=== PATIENT | male | born 1945 | race Caucasian/White ===

== ENCOUNTER → 2020-11-09 | Day surgery (SDC) | payer OTHER, MEDICARE ==
[~2020-11-09] MED LIST: ALLER-TEC D 5-1 EACH PO; DIPHENHYDRAMINE25 M3 PO; NORCO5 PO; OMEPRAZOLE40 MG PO; PEPCID40 MG PO
--- NOTE | ~2020-11-09 | OP ---
[address] [address] OPERATIVE REPORT Name: ALYSHA GOFF Room: [facility].#: [id number] Admission: 11/09/20 Attend Phys: Cecelia Schumacher MD Discharge: Date of : 41 Report #: [id number] THIS REPORT FOR: cc: Guy Dillard Bruce R. DO James,Cecelia Higginbotham MD ~ DATE OF SURGERY: 11/09/2020 PREOPERATIVE DIAGNOSES: Umbilical and left inguinal hernia. POSTOPERATIVE DIAGNOSES: Umbilical and left inguinal hernia. OPERATIVE PROCEDURE: Suture repair of umbilical hernia and open left inguinal hernia repair with soft Bard mesh in a Dominique style repair. ANESTHESIA: General endotracheal, 0.5% Marcaine infiltrated into the wound sites. DESCRIPTION OF PROCEDURE: The patient was placed under general endotracheal anesthesia and the patient's abdomen was shaved, prepped and draped in a sterile fashion. A time-out was taken, IV antibiotics administered. We began by dissecting the umbilical hernia. I injected along the supraumbilical crease and made a transverse incision of approximately 3 cm with a #15 scalpel blade with pickups and cautery, and Metzenbaum scissors. I carefully dissected into the subcutaneous tissue and an umbilical hernia sac was encountered. It was taken off the cord structures and it was carefully amputated with its contents and sent for surgical sampling. The edges were dissected clear and then three interrupted 0 Prolene sutures was passed across the defect and tied securely and infiltrated with 0.5% Marcaine. Closure of the epidermal skin was with buried 4-0 PDS sutures. I then directed my attention to the left inguinal crease. I did a field block by injecting just medial to the anterior superior iliac spine subdermally to the lateral border of the rectus muscle and injected subdermally down to the pubic tubercle and parallel to the inguinal ligament within 8 cm, of Marcaine. A transverse incision of 8 cm was created. Cautery dissection through the subcutaneous fat, Madi's fascia down to the external oblique fibers was obtained. A Weitlaner was placed at that location. The external oblique fibers were excised with a #10 blade, that just lifted up with 2 hemostats and the external oblique fibers was opened from the external ring to the internal ring. A Weitlaner was placed at that location. The underlying tissues were then teased apart. The cord structure was lifted off of the pubic tubercle and surrounded by a Abdiel drain. The cremasteric fibers was opened and I eviscerated out a large lipoma and dissected off the cord structure, a hernia sac, and reduced it back into the internal ring. A piece of Bard soft mesh was brought into the field, cut in an elliptical fashion with a keyhole, wrapping around the newly defined cord and crossed behind the cord exit site from the external ring. 0 Prolene was used to anchor this mesh [place] [address] OPERATIVE REPORT Name: ALYSHA GOFF Room: [facility] Micaela#: [id number] Admission: 11/09/20 Attend Phys: Cecelia Schumacher MD Discharge: Date of : 41 Report #: [id number] tubercle transversalis fascia and iliopubic tract in 8 locations. Those sutures were infiltrated with 0.5% Marcaine. The Abdiel drain was removed and the cord was allowed to lie on the newly repaired inguinal floor. The external oblique fibers were reapproximated with a running 2-0 plain gut sutures. Madi's fascia was reapproximated with interrupted 2-0 plain gut sutures and the epidermis was closed with a running 4-0 PDS sutures. Dermabond was placed on both incisions, ending the operative procedure. ESTIMATED BLOOD LOSS: 2 mL. SPECIMEN: Umbilical hernia sac and contents were sent. CONDITION: The patient was extubated and returned to recovery in satisfactory condition. By: 1141 [id number] Schumacher MD /cierra
[2020-11-09 10:30] LABS: HEMATOCRIT 45.1 % (42.0-52.0); HEMOGLOBIN 15.7 gm/dL (14.0-18.0); MCH 33.6 pg (26.0-34.0); MCHC 34.8 g/dL (28.0-37.0); MCV 96.3 fL (80.0-100.0); MPV 7.3 fl. (7.2-11.1); RBC 4.68 mil/uL (4.50-6.00); RDW-CV 13.2 % (10.5-14.5); WBC 4.8 thou/uL (4.0-11.0)
[2020-11-09 10:36] LABS: CALCIUM 9.4 mg/dL (8.5-10.1); CREATININE 1.2 mg/dL (0.6-1.3); POTASSIUM 4.2 mmol/L (3.5-5.1)
--- NOTE | 2020-11-09 14:49 | EKG ---
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: : 1945 Requested By: Rola Vasquez Order Number: [id number] Karma MD: Jonel Amin Measurements Intervals Cabins Rate: 76 P: 42 [place]: 171 QRS: -38 QRSD: 119 T: -19 QT: 413 QTc: 465 Interpretive Statements Sinus rhythm Atrial premature complexes Incomplete right bundle branch block Low voltage, precordial leads No previous ECG available for comparison Electronically Signed On 11-09-2020 14:49:18 CDT by Jonel Amin [email or web address] <ELECTRONICALLY SIGNED> By: Jonel Amin MD, FACC 11/09/20 1449 1058 1058 Jonel Amin MD, [facility] /EPI
--- NOTE | 2020-11-12 12:07 | PATH ---
[address] [address] PATHOLOGY RPT PROCEDURE Name: ALYSHA GOFF Room: [facility]#: [id number] Admission: 11/09/20 Date of : 41 Discharge: Report #: [id number] Path Case #: [id number] [facility] Accession Number: [id number] . 01 Material submitted: . umbilicus - UMBILICAL SAC WITH CONTENTS . 01 Clinical history: . HERNIA REPAIR, UMBILICAL HERNIA REPAIR, INGUINAL UNILATERAL UMBILICAL HERNIA, LEFT INGUINAL HERNIA . 02 Diagnosis: Umbilical sac with contents: - Benign fibrofatty tissue. (DENNY:jazmín; 11/11/2020) [facility] 11/11/2020 1248 Local . 02 Electronically signed: . Sánchez Berry MD, Pathologist NPI- [id number] . 01 Gross description: . Fixative: Formalin Labeled: Umbilical hernia sac with contents Specimen received: Multiple segments of pale thomason to dark thomason and yellow fibroadipose tissue Dimensions: 3.8 x 1.2 x 0.3 cm in aggregate dimensions Abnormalities: None identified Submitted representatively in cassette A1. ([facility]; 11/10/2020) [facility] 11/10/2020 1131 Local . 02 Pathologist provided ICD-10: K42.9, K40.90 . 02 CPT . 318582 Specimen Comment: A courtesy copy of this report has been sent to [phone] Specimen Comment: [id number] Specimen Comment: Report sent to / DR SANDERSON Specimen Comment: A duplicate report has been generated due to demographic updates. Performed at: [address], [place] [id number] MD Luc Montana MD Phone: [phone] [address] [address] PATHOLOGY RPT PROCEDURE Name: ALYSHA GOFF Room: [facility]#: [id number] Admission: 11/09/20 Date of : 41 Discharge: Report #: [id number] Path Case #: [id number] Performed at: 02 [facility] [address] [place], [place] [id number] MD Sánchez Berry MD Phone: [phone]
== END | disposition home or self-care (01) ==
LOC: M.SUR 06:32
PROVIDERS: Anesthesiology; ATTEND Surgery
DX: K40.90 Unilateral inguinal hernia, without obstruction or gangrene, not specified as recurrent (principal); K42.9 Umbilical hernia without obstruction or gangrene; D17.6 Benign lipomatous neoplasm of spermatic cord; Z98.890 Other specified postprocedural states; Z79.899 Other long term (current) drug therapy; Z20.822 Contact with and (suspected) exposure to COVID-19